=== PATIENT | female | born 1980 | race Two or more races ===

== ENCOUNTER 2016-11-06 19:13 | Emergency (ER) | payer MEDICARE, MEDICAID ==
[2016-11-06 19:59] VITALS: BP 146/83
--- NOTE | 2016-11-06 20:37 | EDM.PDOC ---
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: Other (see below) Other Treatments STORE CLERK CHECKER: oral gel Upper Right tooth Pain Score (Numeric/FACES): 8 - Related Data Allergies Allergy/AdvReac Type Severity Reaction Status Date / Time No Known Allergies Allergy Verified 11/06/16 20:03 Home Meds: Home Meds Calcium Carbonate [Calcium] 600 mg PO BID 04/09/13 [History] Cholecalciferol (Vitamin D3) [Vitamin D] 1,000 units PO BID 04/09/13 [History] FLUoxetine [PROzac] 20 mg PO DAILY 04/09/13 [History] Sodium Fluoride 10 ml PO BID 04/09/13 [History] Past Medical History HEENT History: Reports: Other (See Below) Other HEENT History: Dental Psychiatric History: Reports: Depression - Infectious Disease History Infectious Disease History: Reports: Chicken Pox Social & Family History - Tobacco Use Smoking Status *Q: Current Every Day Smoker Years of Tobacco use: 20 Packs/Tins Daily: 0.5 - Caffeine Use Caffeine Use: Reports: Coffee, Energy Drinks, Soda - Alcohol Use Days Per Week of Alcohol Use: 0 - Recreational Drug Use Recreational Drug Use: No ED ROS ENT - Review of Systems Review Of Systems: See Below Constitutional: Denies: Fever, Chills HEENT: Reports: Dental Pain, Other (Patient complains of lose dental cap to right upper first molar, pain, tenderness radiating to face and head. ). Denies : Ear Discharge, Ear Pain, Eye Discharge, Eye Pain, Hearing Loss, Nose Pain, Throat Pain, Throat Swelling Respiratory: Denies: Shortness of Breath, Wheezing, Cough, Sputum Cardiovascular: Denies: Chest Pain, Blood Pressure Problem, Dyspnea on Exertion , Edema, Lightheadedness, Palpitations GI/Abdominal: Reports: No Symptoms : Reports: No Symptoms Musculoskeletal: Reports: No Symptoms Skin: Reports: No Symptoms Neurological: Reports: No Symptoms Psychiatric: Reports: No Symptoms Hematologic/Lymphatic: Reports: No Symptoms Immunologic: Reports: No Symptoms ED EXAM, ENT - Physical Exam Exam: See Below Exam Limited By: No Limitations General Appearance: Alert, WD/WN Eye Exam: Bilateral Eye: PERRL Ears: Normal External Exam, Normal Canal, Hearing Grossly Normal, Normal TMs Nose: Normal Inspection, Normal Mucousa, No Blood Mouth/Throat: Dental Pain, Dental Tenderness, Gum Swelling, Other (# 5cap lose, # 4tooth lose. Extensive dental caries to remaining teeth, edema of gum. ). No : Pharyngeal Erythema, Throat Pain, Throat Swelling, Tongue Swelling, Tonsillar Erythema, Tonsillar Exudates, Tonsillar Swelling Head: Atraumatic, Normocephalic Neck: Normal Inspection, Supple, Non-Tender, Full Range of Motion Respiratory/Chest: No Respiratory Distress, Lungs Clear, Normal Breath Sounds, No Accessory Muscle Use, Chest Non-Tender Cardiovascular: Normal Peripheral Pulses, Regular Rate, Rhythm, No Edema, No Gallop, No Murmur, No Rub Extremities: Normal Inspection, Normal Range of Motion, Non-Tender, No Pedal Edema, Normal Capillary Refill Neurological: Alert, Oriented, CN II-XII Intact, Normal Cognition, Normal Gait, No Motor/Sensory Deficits Skin: Warm, Dry, Intact, Other (faint edema to right face. ) Course - Vital Signs Last Recorded V/S: Last Vital Signs Temp 37.0 C 11/06/16 20:00 Pulse 72 11/06/16 20:00 Resp 14 11/06/16 20:00 BP 146/83 H 11/06/16 20:00 Pulse Ox 98 11/06/16 20:00 Departure - Departure Time of Disposition: 20:36 Disposition: Home, Self-Care 01 Condition: good Clinical Impression: Dental caries extending into dentin, Infected dental caries - Discharge Information Referrals: PCP,None [Primary Care Provider] - Forms: ED Department Discharge Additional Instructions: Take antibiotic penicillin V potassium 500mg PO four times a day for 10 days. Make sure you take all of your antibiotic. You need to follow up with a dentist this week. A referral will be sent for you. You can take ibuprofen 600 to 800mg PO three times a day and/or acetaminophen 650mg to 1000mg PO every 6 hours for pain as needed.
== END 2016-11-06 20:58 | disposition home or self-care (01) ==
LOC: JP.ED 19:13
DX: K02.62 Dental caries on smooth surface penetrating into dentin (principal); K04.7 Periapical abscess without sinus; F17.210 Nicotine dependence, cigarettes, uncomplicated; Z79.899 Other long term (current) drug therapy
CPT/HCPCS: 99283